=== PATIENT | male | born 1980 | race Caucasian/White ===

== ENCOUNTER 2019-08-06 06:31 | Day surgery (SDC) | payer OTHER ==
[~2019-08-06] VITALS: Ht 172.7 cm; Wt 113.4 kg
[2019-08-06] MEDS ORDERED: MIDAZOLAM 2 MG/2 ML VIAL ONE (07:32)
[2019-08-06] MEDS ORDERED: fentaNYL 0.05 MG/ML VIAL ONE (07:32)
[2019-08-06] MEDS ORDERED: LIDOCAINE 2% 100 MG/5 ML UJET TP ONE (07:33)
[2019-08-06] MEDS ORDERED: fentaNYL 0.05 MG/ML VIAL IVP ONE (09:00)
== END 2019-08-06 09:50 | disposition home or self-care (01) ==
LOC: MDS 06:31 → MMU 06:32 → MDS 09:50
PROVIDERS: ATTEND Internal Medicine Gastroenterology
DX: K62.5 Hemorrhage of anus and rectum (principal); D12.3 Benign neoplasm of transverse colon; D12.8 Benign neoplasm of rectum; K57.30 Diverticulosis of large intestine without perforation or abscess without bleeding; K64.8 Other hemorrhoids; F41.9 Anxiety disorder, unspecified; E03.9 Hypothyroidism, unspecified; F32.9 Major depressive disorder, single episode, unspecified; Z88.0 Allergy status to penicillin; Z79.899 Other long term (current) drug therapy; F17.200 Nicotine dependence, unspecified, uncomplicated; E66.9 Obesity, unspecified; Z68.38 Body mass index [BMI] 38.0-38.9, adult
CPT/HCPCS: 45380; 45385; J3010; J2250